=== PATIENT | male | born 1970 | race Caucasian/White ===

== ENCOUNTER 2020-01-17 07:29 | Emergency (ER) | payer OTHER ==
[~2020-01-17] VITALS: Ht 172.7 cm; Wt 102.1 kg
[~2020-01-17 07:29] MED LIST: UNK MED
--- OUTSIDE RECORDS SUMMARY | 2020-01-17 07:31 | XMS REPORT | Clinical Summary ---
Author Author [facility] Organization [facility] Address Unknown Phone Unavailable Care Team Providers Care Drier Transfer Car Operator Name Role Phone Tom Moarles MD PCP [phone] Allergies No Known Allergies Medications End Date Status Medication Sig Dispensed Refills Start Date Active amlodipine-olmesartan Take 1 tablet 1 12/27/19 1 (MARIO) 5-40 mg per tablet by mouth 7 every morning. Active rosuvastatin (CRESTOR) 10 Take 10 mg by 1 12/12 5/201 MG tablet mouth every 7 morning. Active aspirin (ECOTRIN) 81 MG Take 81 mg by 0 enteric coated tablet mouth every morning. Active multivitamin (THERAGRAN) Take 1 tablet 0 tablet by mouth every morning. Active Problems Problem Noted Date ACS (acute coronary syndrome) 03/08/2017 Social History Date Tobacco Use Types Packs/Day Years Used Former Smoker Cigarettes 1 Smokeless Tobacco: Former Quit: 12/12/2016 User Drinks/Week oz/Week Comments Alcohol Use No Sex Assigned at Date Recorded Not on file Industry Job Start Date Occupation Not on file Not on file Not on file Travel End Travel History Travel Start No recent travel history available. Last Filed Vital Signs Not on file Plan of Treatment Health Maintenance Due Date Last Done Comments INFLUENZA VACCINE 03/14/2020 Implants Device Identifier Shelf Expiration Date Model / Serial / L ot Implanted Type Area Manufactur er 02/10/2019 [id number] / / [id number] Device Vasclr Clsr Baln Cath 10ml Cardiovasc N/A: N/A CARDINAL Lkng Syr 6fr 7fr [facility] [id number] Implants Implanted: 03/09/2017 at [facility] (Quantity not on file) Results Not on fileafter 01/16/2019 Insurance Type Payer Benefit Subscriber ID Effective Phone Address Plan / Dates Group HMO CIGNA CIGNA OPEN xxxxxxxxxxx 2008-P ACCESS/NET resent WORK Advance Directives For more information, please contact: [phone] Patient Administrative Support Assoc Explanation Type Date Recorded Advance Directives, Living Will and Medical Power of Blender/Braze Applicator Date Inactivated Comments Code Status Date Activated 03/09/2017 7:41 PM Full Code 03/09/2017 11:04 AM Code Status decision reached by: Patient 03/09/2017 11:04 AM Full Code 03/08/2017 6:40 PM Code Status decision reached by: Patient
[2020-01-17] MEDS ORDERED: DIAZEPAM 5 MG TAB PO PRN (08:00)
[2020-01-17] MEDS ORDERED: HYDROCODONE/APAP 10MG-325MG TAB PO ONE (08:00)
[2020-01-17] MEDS ORDERED: KETOROLAC TROMETHAMINE 60 MG/2 ML VIAL IM ONE (08:00)
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
[2020-01-17] MEDS ORDERED: CLONIDINE HCL 0.1 MG TAB PO ONE (09:00)
--- NOTE | 2020-01-17 09:01 | NUR ---
pt states he takes 50 mg losartan po and 25 mg metoprolol po at home but did not take morning dose of either; notified and ordered clonidine 0.1 mg po one time now
[2020-01-17] MEDS ORDERED: NICARDIPINE HCL SOLN 20 MG in SODIUM CHLORIDE 0.9% 250ML 200 ML IV STA (09:20)
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
[2020-01-17] MEDS ORDERED: DEXAMETHASONE SOD PHOS 10 MG/1 ML VIAL IV ONE (10:00)
[2020-01-17] MEDS ORDERED: NICARDIPINE 20 MG/200 ML IV SCH (10:15)
[2020-01-17 10:47] LABS: BASOPHILS % 0.4 % (0.0-1.0); EOSINOPHILS # (AUTO) 0.1 (0.0-0.4); EOSINOPHILS % 1.2 % (0.0-6.0); HEMATOCRIT 47.6 % (38.2-49.6); HEMOGLOBIN 16.4 g/dL (14.0-18.0); LYMPHOCYTES % 26.9 % (18.0-39.1); MEAN CORPUSCULAR HGB CONC 34.5 g/dL (31-35); MONOCYTES # (AUTO) 0.6 (0.2-0.8); MONOCYTES % 7.6 % (4.4-11.3); NEUTROPHILS # (AUTO) 4.7 (2.1-6.9); NEUTROPHILS % 63.4 % (38.7-80.0); PLATELET COUNT 152 x10e3/uL (140-360); RED BLOOD COUNT 5.12 x10e6/uL (4.3-5.7); RED CELL DISTRIBUTION WIDTH 13.2 % (11.7-14.4)
[2020-01-17 11:02] LABS: ALANINE AMINOTRANSFERASE 101 IU/L (0-55); ALBUMIN/GLOBULIN RATIO 1.2 (0.8-2.0); ALKALINE PHOSPHATASE 99 IU/L (40-150); ANION GAP 12.4 mmol/L (8-16); BLOOD UREA NITROGEN 14 mg/dL (7-26); BUN/CREATININE RATIO 12 (6-25); CALCIUM 10.2 mg/dL (8.4-10.2); CARBON DIOXIDE 26 mmol/L (22-29); CHLORIDE 103 mmol/L (98-107); CREATININE, SERUM 1.16 mg/dL (0.72-1.25); EST GLOMERULAR FILTRATION RATE > 60 ML/MIN (60-); GLUCOSE 129 mg/dL (74-118); POTASSIUM 4.4 mmol/L (3.5-5.1); SODIUM 137 mmol/L (136-145)
[2020-01-17 11:08] VITALS: BP 135/83
[2020-01-17 11:13] LABS: INR 0.88; PROTHROMBIN TIME 12.5 seconds (11.9-14.5)
== END 2020-01-17 12:34 | disposition other institution (70) ==
LOC: ER 07:29
DX: R51 Headache (principal); S06.0X0A Concussion without loss of consciousness, initial encounter; C71.9 Malignant neoplasm of brain, unspecified; Q04.9 Congenital malformation of brain, unspecified; I10 Essential (primary) hypertension; E11.9 Type 2 diabetes mellitus without complications; E78.5 Hyperlipidemia, unspecified; F17.210 Nicotine dependence, cigarettes, uncomplicated
CPT/HCPCS: 36415; 70450; 72125; 80053; 85025; 85610; 93005; 99284; J1100; J1885

== ENCOUNTER 2023-02-11 21:02 | Emergency (ER) | payer OTHER ==
[~2023-02-11] VITALS: Ht 172.7 cm; Wt 102.1 kg
[2023-02-11 21:08] VITALS: O2SAT 100
== END 2023-02-11 21:16 | disposition home or self-care (01) ==
LOC: ER 21:10
DX: I10 Essential (primary) hypertension (principal); G89.29 Other chronic pain; M54.9 Dorsalgia, unspecified; E11.9 Type 2 diabetes mellitus without complications; E78.00 Pure hypercholesterolemia, unspecified; F17.200 Nicotine dependence, unspecified, uncomplicated
CPT/HCPCS: 99282

== ENCOUNTER 2025-03-31 20:09 | Emergency (ER) | payer OTHER ==
[~2025-03-31] VITALS: Ht 172.7 cm; Wt 98.0 kg
[~2025-03-31 20:09] MED LIST changes: +ASPIRIN81 MG PO; +BRILINTA90 MG PO; +CRESTOR10 MG PO; +CRESTOR40 MG; +LOSARTAN POTAS100 MG PO; +MEDROL4 M2 PO; +METOPROLOL SUCC50 MG PO; +METOPROLOL TART50 MG PO; +OZEMPIC0.25 MG/02 SC
[2025-03-31 20:10] VITALS: TEMP 98
[2025-03-31] MEDS: ACETAMIN/BUTALBITAL/CAFFEINE TAB PO ONE (20:43)
[2025-03-31 21:55] VITALS: PULSE 71; RESP 17
[2025-04-01 00:06] VITALS: BP 123/89; PULSE 76; RESP 17; TEMP 97.4; O2SAT 100
== END 2025-04-01 00:08 | disposition home or self-care (01) ==
LOC: ER 20:29
DX: R51.9 Headache, unspecified (principal); I10 Essential (primary) hypertension; E11.9 Type 2 diabetes mellitus without complications; E78.5 Hyperlipidemia, unspecified; M54.9 Dorsalgia, unspecified; G89.29 Other chronic pain; I25.2 Old myocardial infarction; Z95.5 Presence of coronary angioplasty implant and graft; F17.210 Nicotine dependence, cigarettes, uncomplicated
CPT/HCPCS: 70450; 99283